=== PATIENT | female | born 2000 | race African-American/Black ===

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

== ENCOUNTER 2021-06-26 13:40 | Emergency (ER) | payer MEDICAID ==
[~2021-06-26] VITALS: Ht 165.1 cm; Wt 93.0 kg
[2021-06-26] MEDS ORDERED: MAGNESIUM/ALUMINUM HYDROXIDE/SIMETHICONE 30ML UDC PO NR (18:30)
[2021-06-26] MEDS ORDERED: FAMOTIDINE 20MG TABLET PO NR (18:30)
[2021-06-26 18:56] LABS: CLARITY URINE CLEAR (CLEAR); COLOR URINE YELLOW (YELLOW); KETONES URINE NEGATIVE (NEGATIVE); LEUKOCYTE ESTERASE URINE 2+ (NEGATIVE); NITRITE URINE POSITIVE (NEGATIVE); OCCULT BLOOD URINE TRACE (NEGATIVE); PH URINE 5.5 (4.5-8.0); PROTEIN URINE TRACE (NEGATIVE)
[2021-06-26 19:06] LABS: UCG SCREEN NEGATIVE
[2021-06-26 19:36] LABS: BASOPHILS % 0.5 % (0.0-2.0); EOSINOPHILS % 0.2 % (0.0-5.0); HEMATOCRIT. 35.3 % (36.0-48.0); HEMOGLOBIN. 11.7 g/dL (12.0-16.0); LYMPHOCYTES % 12.2 % (20.0-50.0); MEAN CORPUSCULAR HEMOGLOBIN 26.9 pg (28.0-32.0); MEAN CORPUSCULAR VOLUME 81.3 fL (81.0-99.0); MONOCYTES % 5.9 % (2.0-8.0); NEUTROPHILS % 81.2 % (40.0-76.0); PLATELET 328 x1000/uL (130-400); RED BLOOD CELL COUNT 4.34 mill/uL (4.2-5.4); RED CELL DISTRIBUTION WIDTH 13.1 % (11.6-14.6)
[2021-06-26] MEDS ORDERED: KETOROLAC 30MG/ML VIAL IM NR (19:45)
[2021-06-26 19:48] LABS: CHLORIDE 109 mEq/L (98-107)
[2021-06-26] MEDS ORDERED: CIPR-263 MT (20:07)
[2021-06-26 20:29] VITALS: BP 123/61
== END 2021-06-26 20:35 | disposition home or self-care (01) ==
LOC: ER 13:40
DX: N12 Tubulo-interstitial nephritis, not specified as acute or chronic (principal)
CPT/HCPCS: 36415; 76705; 80053; 81003; 81025; 83690; 85025; 87077; 87086; 87186; 96372; 99284; J1885